=== PATIENT | female | born 1980 | race Two or more races ===

== ENCOUNTER → 2020-09-07 15:00 | Outpatient (CLI) | payer OTHER | END | disposition home or self-care (01) | LOC: EDSEX 15:00 → PPH VACUNA 15:00 | DX: Z23 Encounter for immunization (principal) ==

== ENCOUNTER → 2020-09-28 08:00 | Outpatient (CLI) | payer OTHER | END | disposition home or self-care (01) | LOC: PPH VACUNA 08:00 | DX: Z23 Encounter for immunization (principal) ==